=== PATIENT | female | born 1950 | race Caucasian/White ===

== ENCOUNTER 2021-11-07 15:44 | Observation (INO) | payer MEDICARE, MEDICAID, SELFPAY ==
--- NOTE | ~2021-11-07 | XR_ITS ---
EXAMINATION: XR sacrum coccyx min 2V DATE: 11/07/2021 16:39 INDICATION: Buttock hematoma and swelling with left-sided sacral pain post fall TECHNIQUE: Frontal, angled frontal and lateral views of the sacrum and coccyx were obtained. COMPARISON: None. FINDINGS: There is relatively abrupt anterior angulation of the inferior coccyx the left lobe of S4-S5. No frac ture line identified. Sacral arches appear intact. Mild bilateral sacroiliac osteoarthritis. Partiall y visualized internal fixation at the proximal left femur for an old intratrochanteric fracture with still mild distraction of a chronic nonunited lesser trochanteric fracture fragment. Severe lower lum bar facet osteoarthritis. IMPRESSION: 1. Abrupt anterior angulation at the caudal sacrum which raises some suspicion for fracture but witho ut definitive fracture line. Could consider CT for further evaluation. Reviewed, dictated and finalized at location A. TIC STRAIGHTENING ROLL OPERATOR IMPRESSION: 1. Abrupt anterior angulation at the caudal sacrum which raises some suspicion for fracture but without definitive fracture line. Could consider CT for furthe r evaluation.
--- NOTE | ~2021-11-07 | CT_ITS ---
EXAMINATION: CT pelvis w con DATE: 11/07/2021 18:01 INDICATION: Swelling, bruising and hematoma at the left buttock post fall TECHNIQUE: Computed tomography (CT) of the pelvis was performed with 100 mL Omnipaque-350 intravenous contrast. Automated exposure control and iterative reconstruction technique were employed.The dose-l ength product was 211.68 mGy-cm. COMPARISON: Radiographs dated 11/07/2021 FINDINGS: Chronic appearing L5 burst fracture with 40% central vertebral body height loss and 3 mm retropulsion . Severe lower lumbar facet osteoarthritis with fusion across the bilateral L4-L5 facet joints. Bastr op's disease with degenerative changes between the articulating cephalad and caudal surface of the lo wer lumbar spinous processes. Anterior angulation of the sacrum at the level of S5 without evident fracture which could be either d evelopmental or sequela of old trauma. Chronic intratrochanteric fracture of the proximal left femur with antegrade intramedullary theo and femoral neck dynamic compression screw fixation. Persistent sup eromedial distraction of a chronic nonunited lesser trochanteric fragment. There is moderate associat ed likely secondary atrophy of the left iliopsoas muscle. No acute fractures in the pelvis. Osteoarth ritis of the bilateral sacroiliac joints, moderate on the left and mild on the right. There is also m oderate left and mild right hip osteoarthritis. Soft tissue swelling and subcutaneous edema at the left buttock surrounding a large hematoma which me asures 10.1 x 10.1 x 4.2 cm . There are couple foci of active contrast extravasation within the hemat sandra. Bladder and visualized portions of the bowels, lower poles of the bilateral kidneys and gallblad faby fundus are normal. The uterus is not identified and has likely been surgically resected. No free fluid in the pelvis. No pathologically enlarged abdominal or pelvic lymphadenopathy. IMPRESSION: 1. Couple small foci of active transition within a 10 x 10 x 4 cm subcutaneous hematoma at the left b uttock. 2. No acute osseous abnormality. Reviewed, dictated and finalized at location A. NICAL WRITING LEAD/MGR IMPRESSION: 1. Couple small foci of active transition within a 10 x 10 x 4 cm subcutaneous hematoma at the left buttock. 2. No acute osseous abnormality.
[2021-11-07 15:48] VITALS: BP 225/129; PULSE 100; RESP 14; TEMP 36.9; O2SAT 100
--- NOTE | 2021-11-07 15:53 | ED.FALL ---
HPI - Fall General Chief Complaint: Fall Stated Complaint: Buttock Pain Time Seen by Provider: 11/07/21 15:53 Source: patient Mode of arrival: ambulatory Limitations: no limitations History of Present Illness HPI Narrative: Patient is 71-year-old female who presents the ED with complaints of a fall that occurred approximately 2 hours prior to arrival. Patient reports she was walking down her basement steps when she slipped and fell down 2 stairs, hitting her left buttocks against the edge of the stair. She denies any other injury or prodromal symptoms. No head injury or LOC. She has since developed pain and extensive swelling to her left buttocks. She describes the pain as a burning pain just underneath the surface of her skin, worse with walking and sitting. She denies any lower back pain, bowel or bladder incontinence, saddle anesthesia, weakness in her lower extremities. Patient is not on any blood thinners. No past medical history. No fever chills nausea vomiting. Related Data Allergies Allergy/AdvReac Type Severity Reaction Status Date / Time No Known Allergies Allergy Unverified 03/21/16 16:00 Review of Systems Review of Systems: CONSTITUTIONAL: Denies fever, chills, or sweats. CARDIOVASCULAR: Denies chest pain, palpitations, or edema. RESPIRATORY: Denies cough or dyspnea. GASTROINTESTINAL: Denies abdominal pain, nausea, vomiting, or diarrhea, bowel/bladder incontinence. SKIN: Reports ecchymosis to left buttock. MUSCULOSKELETAL: Reports pain and diffuse swelling to the left buttock. Denies lower back pain, joint pain, or myalgia. NEUROLOGIC: Denies headache, numbness, or weakness in BLE. All systems reviewed & are unremarkable except as noted in HPI and below [facility] Past Medical History Medical History (Updated 11/07/21 @ 20:17 by Opal Le PA-C) No pertinent past medical history Surgical History Surgical History (Updated 11/07/21 @ 19:00 by Opal Le PA-C) H/O wrist surgery History of hip surgery History of hysterectomy Family History Family History (Updated 11/07/21 @ 21:31 by Doris Hood RN) Father Chronic obstructive pulmonary disease Mother Colon cancer Diabetes mellitus Hypertension Social History Social History (Updated 11/07/21 @ 19:00 by Opal Le PA-C) Smoking status: Former smoker Alcohol intake: never Substance use: never Spiritual care concerns: No Exam Narrative: GENERAL: Well appearing, well-nourished, non-toxic, in no acute distress. HEAD: Normocephalic, atraumatic. NECK: Supple. No adenopathy, no masses. RESPIRATORY: Airway patent, respirations nonlabored. Clear to auscultation bilaterally, no rales, rhonchi, wheezing. CARDIOVASCULAR: Regular rate and rhythm without murmurs, rubs, or gallops. Peripheral pulses 2+ and equal bilaterally. ABDOMINAL: Soft, nontender, nondistended, no hepatosplenomegaly. Normoactive BS. MUSCULOSKELETAL: Moves all extremities. Strength/ROM intact. No midline lumbar spinal tenderness. Diffuse firm soft tissue swelling encompassing left buttock. Mild tenderness to palpation of left buttock. Diffuse ecchymosis forming in lower left buttock. SKIN: Warm, dry, normal color. No rashes. NEURO: A&O X3. Speech clear. Cranial nerves II-XII grossly intact. Steady gait. No ataxic movements. PSYCHIATRIC: Appropriate mood and affect. Normal interaction. Course Consultations Consultation #1: Spoke with Dr. Pardo, general surgery. Recommended admission with surgery consultation. Recommends every 6 hour H&H's. Date: 11/07/21 Consultation #2: Discussed with JOSE MIGUEL Lee patient presentation and workup. CBC pending. Advised to call her back with results. Date: 11/07/21 Time: 22:00 Consultation #3: Hospitalist service advised they would prefer to consult with surgery as primary admitting. Date: 11/07/21 Time: 20:10 Additional Consultation(s): 2009: Re-discussed case with Dr. Pardo. He will admit. Coags sent. Vital Signs
[2021-11-07 17:54] LABS: Estimated Glomerular Filt Rate > 60
[2021-11-07 17:55] LABS: Anion Gap 9 mmol/L (8-16); Blood Urea Nitrogen 21 mg/dL (7-17); Carbon Dioxide 24 mmol/L (22-30); Chloride 101 mmol/L (98-107); Estimated Glomerular Filt Rate > 60; Glucose 141 mg/dL (65-110); Potassium 3.8 mmol/L (3.4-5.0); Sodium 134 mmol/L (137-145)
[2021-11-07 19:27] LABS: Basophils Absolute Auto 0.1 K/mm3 (0.0-0.1); Basophils Percent Auto 0.4 % (0.2-1.2); Hematocrit 42.3 % (37.0-47.0); Hemoglobin 13.5 g/dL (12.0-15.0); Immature Granulocyte Absolute 0.08 K/mm3 (0.00-0.031); Immature Granulocyte Percent A 0.4 % (0-0.5); Lymphocytes Absolute Auto 0.84 K/mm3 (0.9-3.2); Lymphocytes Percent Auto 4.5 % (18.3-44.2); Mean Corpuscular HGB Conc 31.9 g/dl (32-36); Mean Corpuscular Hemoglobin 28.8 pg (26-34); Mean Corpuscular Volume 90.2 fl (80-100); Mean Platelet Volume 10.4 fl (7.4-10.4); Monocytes Absolute Auto 0.8 K/mm3 (0.1-0.6); Monocytes Percent Auto 4.2 % (2.6-8.5); Neutrophils Absolute Auto 16.8 K/mm3 (1.3-6.7); Neutrophils Percent Auto 90.5 % (45.5-73.1); Platelet Count Result 335 k/mm3 (150-375); Red Blood Count 4.69 M/mm3 (4.2-5.4); Red Cell Distribution Width 13.7 % (11.5-14.5); White Blood Count 18.6 K/mm3 (4.5-10.0)
[2021-11-07 20:09] VITALS: BP 148/102; PULSE 104; O2SAT 94
[2021-11-07 20:28] LABS: Partial Thromboplastin Time 21.6 SECONDS (22.3-36.8); Prothrombin Time 12.6 Seconds (11.1-14.7)
--- NOTE | 2021-11-07 21:01 | PC.NURSE ---
report to LUIS Watson
[2021-11-07 21:21] VITALS: BMI 24.3
[2021-11-07 21:22] VITALS: BP 164/103; PULSE 96; RESP 20; TEMP 35.8; O2SAT 99
--- NOTE | 2021-11-07 21:28 | ADMGEN ---
This patient, Farzana Kirby, was admitted to 2 Medical Room 257-01. Patient/family oriented to hospital policies and general routines including ID bracelet, bed and alarms, visiting hours, pain management, procedures, bathroom and other care routines, personal items, smoking policy, room service/diet, and visiting hours. Information on how to activate the Rapid Response Team has been discussed. Patient/Family are encouraged to report perceived risks to care and to ask questions if they do not understand what they are told or what they should do.
[2021-11-07 21:37] LABS: Hematocrit 40.7 % (37.0-47.0); Hemoglobin 13.2 g/dL (12.0-15.0)
--- NOTE | 2021-11-07 23:07 | PM.IMHP ---
H&P: HPI History of Present Illness Date/Time: 11/07/21 23:07 Chief Complaint: Fall with butt pain Narrative: 71-year-old previously healthy female who presented to the ER after at slipping on wet floor and landing on a step causing buttock pain. Review of Systems Review of Systems: 12 systems were reviewed with pertinent positives and negatives per HPI. Except as documented in the HPI, all other systems were reviewed and are negative. [facility] Past Medical History Medical History (Updated 11/07/21 @ 20:17 by Opal Le PA-C) No pertinent past medical history Surgical History Surgical History (Updated 11/07/21 @ 19:00 by Opal Le PA-C) H/O wrist surgery History of hip surgery History of hysterectomy Family History Family History (Updated 11/07/21 @ 21:31 by Doris Hood RN) Father Chronic obstructive pulmonary disease Mother Colon cancer Diabetes mellitus Hypertension Social History Social History (Updated 11/07/21 @ 19:00 by Opal Le PA-C) Smoking status: Former smoker Alcohol intake: never Substance use: never Spiritual care concerns: No Meds Home Medications and Allergies Home Medications Medication Instructions Recorded Confirmed Type No Home Medications 11/07/21 11/07/21 History Allergies Allergy/AdvReac Type Severity Reaction Status Date / Time No Known Allergies Allergy Verified 11/07/21 21:54 Vital Signs Vital Signs - 24 hr 11/07/21 15:48 11/07/21 20:09 11/07/21 21:22 Temperature 98.4 F 96.4 F L Pulse Rate 100 104 H 96 Respiratory Rate 14 20 Blood Pressure 225/129 H 148/102 H 164/103 H Pulse Oximetry 100 94 99 H&P: Results Labs Labs: Short CBC 11/07/21 11/07/21 Range/Units 19:22 21:30 WBC 18.6 H (4.5-10.0) K/mm3 Hgb 13.5 13.2 (12.0-15.0) g/dL Hct 42.3 40.7 (37.0-47.0) % Plt Count 335 (150-375) k/mm3 BMP 11/07/21 11/07/21 17:40 17:52 Sodium 134 L Potassium 3.8 Chloride 101 Carbon Dioxide 24 BUN 21 H Creatinine 0.80 0.70 Glucose 141 H Calcium 9.0
--- NOTE | 2021-11-08 00:55 | PM.IMCN ---
Assessment and Plan Assessment and plan (1) Traumatic hematoma of buttock: Qualifiers: Encounter type: initial encounter Qualified Code(s): S30.0XXA - Contusion of lower back and pelvis, initial encounter Code(s): S30.0XXA - Contusion of lower back and pelvis, initial encounter Status: Acute (2) White coat syndrome with hypertension: Code(s): I10 - Essential (primary) hypertension Status: Acute (3) Leukocytosis: Qualifiers: Leukocytosis type: unspecified Qualified Code(s): D72.829 - Elevated white blood cell count, unspecified Code(s): D72.829 - Elevated white blood cell count, unspecified Status: Acute Additional Plan Patient has large traumatic hematoma of the left buttock. General surgery to manage. His serial H&Hs have been ordered and are stable. Patient's blood pressures have improved since admission. Most likely is consistent with white coat hypertension. I have encouraged patient to purchase a home blood pressure cuff and monitor blood pressures at least on a weekly basis if she does not plan to follow-up with a primary care physician. Patient does have some leukocytosis possibly reactive in nature. No evidence of acute infection present. Repeat CBC in a.m.. Patient has been admitted as observation status. HPI Data of Consult Consult date: 11/07/21 Requesting Physician: Vickie Pardo MD Primary Care Provider: BUILDING GUARD DEPUTY SHERIFF PHYSICIAN Consult Narrative Narrative: Farzana Kirby is a 71 year old female previously healthy who presented to the ER after having slipped on water fallen landing on her left buttock. Patient came to the ER because she was having significant pain in her buttock about a hour and half after fall. On exam patient is noted to have a large hematoma of the left buttock. She reported that initially she did not have much pain after a fall. When she went to the bathroom 1-1.5 hours later she developed pain upon standing. The pain was burning in nature and he was moderate in intensity. She stated that she was able to bend over and stretch without much discomfort. She said to come to the ER to make sure that she did not have a fracture. After she had been in the ER for while and went to stand up to ambulate she noticed more significant pain in the buttock. She reported the pain was a 7/10 in intensity. She had a CT of the pelvis with contrast which demonstrated soft tissue swelling and subcutaneous edema with surrounding large hematoma measuring 10 x 10 x 4 cm with a couple of foci of active contrast extravasation within the hematoma. Patient denies being on any blood thinners. She does not even take a baby aspirin. She denies any known medical problems but has not seen a physician since 2016 when she fractured her left hip. In the ER she was noted to be markedly hypertensive but the patient reports history of white coat hypertension. Her blood pressure did improved to 148/102 prior to coming to the medical floor. The patient does not check her blood pressures at home. She is resistant to the idea of taking any prescription medications. She is agreeable to purchasing a blood pressure cuff to monitor blood pressures at home. Patient denies any dizziness, loss consciousness, hitting her head or extremity weakness. She states that she has not had any serious fall since she fractured her hip in 2016. She does report some mild superficial bruising over the last several years but her amount of bruising has not changed. She denies any hematochezia, melena, epistaxis or petechiae. Review of Systems Review of Systems: 12 systems were reviewed with pertinent positives and negatives per HPI. Except as documented in the HPI, all other systems were reviewed and are negative. [facility] Past Medical History Medical History (Updated 11/08/21 @ 01:09 by Sarah Loera DO) White coat syndrome with hypertension Surgical History Surgical History (
[2021-11-08 02:39] LABS: Hematocrit 34.4 % (37.0-47.0); Hemoglobin 11.6 g/dL (12.0-15.0); Mean Corpuscular HGB Conc 33.7 g/dl (32-36); Mean Corpuscular Hemoglobin 29.2 pg (26-34); Mean Corpuscular Volume 86.6 fl (80-100); Mean Platelet Volume 9.9 fl (7.4-10.4); Platelet Count Result 273 k/mm3 (150-375); Red Blood Count 3.97 M/mm3 (4.2-5.4); Red Cell Distribution Width 13.6 % (11.5-14.5); White Blood Count 9.2 K/mm3 (4.5-10.0)
[2021-11-08 04:20] VITALS: BP 138/87; PULSE 84; RESP 20; TEMP 35.8; O2SAT 99
[2021-11-08 08:16] LABS: Hematocrit 34.4 % (37.0-47.0); Hemoglobin 11.4 g/dL (12.0-15.0)
--- NOTE | 2021-11-08 10:34 | PM.EVENT ---
Event Note Event Note Event Note: Follow-up rounding note Patient up ambulating to restroom she is advised to use a walker since she reports her left knee is hurting her. She states that her buttocks is becoming softer in the area of the hematoma and she is feeling better overall.
--- NOTE | 2021-11-08 12:28 | PM.IMHP ---
H&P: HPI History of Present Illness Date/Time: 11/08/21 12:28 The patient is a 71-year-old female that presented to the emergency department status post fall. Patient reports she slipped while walking down to her basement and fell on the stairs hitting her left buttock/side. The patient reports she did not lose consciousness. The patient reports immediate pain in her left buttock. Over the next few hours, the patient reports significantly worsening swelling, induration in the area. Patient to the emergency department, the patient was noted to have a large left buttock hematoma. Imaging was confirmatory of diagnosis. The patient was admitted to our service for further observation. Chief Complaint: Left buttock traumatic hematoma Review of Systems Constitutional: Constitutional: Denies anorexia, Denies chills, Denies fatigue, Denies fever(s), Denies lethargy, Denies night sweats, Denies poor appetite, Denies weakness, Denies weight gain and Denies weight loss Eyes: Eyes: Denies no additional eye complaints ENT: Reports system reviewed and no additional complaints, except as documented Cardiovascular: Cardiovascular: Reports no additional cardiovascular complaints Respiratory: Respiratory: Reports no additional respiratory complaints Gastrointestinal: Gastrointestinal: Reports no additional gastrointestinal complaints Genitourinary: Genitourinary: Reports no additional female genitourinary complaints Musculoskeletal: Musculoskeletal: Reports as per HPI, Reports back pain, Reports deformity, Denies muscle cramps, Denies muscle weakness, Denies numbness, Denies stiffness and Denies tingling Integumentary/Breasts: Skin/Breast: Reports system reviewed and no additional complaints, except as docu and Reports as per HPI Neurologic: Reports system reviewed and no additional complaints, except as documented Psychiatric: Psychiatric: Reports no additional psychiatric complaints Endocrine: Endocrine: Reports no additional endocrine complaints Hematologic/Lymphatic: Hematologic/Lymphatic: Reports no additional hematologic/lymphatic complaints Allergic/Immunologic: Allergic/Immunologic: Reports no additional allergic/immunologic complaints [facility] Past Medical History Medical History White coat syndrome with hypertension Surgical History Surgical History H/O colonoscopy with polypectomy (10/2010) H/O wrist surgery (05/2005) ORIF right wrist History of total hysterectomy with bilateral salpingo-oophorectomy (BSO) Due to uterine fibroids Status post open reduction with internal fixation of fracture (02/2016) Left hip fracture Family History Family History Father , Age 84 Chronic obstructive pulmonary disease Mother , Age 80 Colon cancer Diabetes mellitus Hypertension Social History Social History Social History: The patient is and lives alone. She has 1 daughter and 2 sons. She is a retired sales representative supervisor and seamstress. She is independent in all activities of daily living. She smoked 2 packs of cigarettes per day for 50 years but quit smoking in 2015. She rarely drinks alcohol and only in small amounts. She denies any illicit substance use. Primary care physician: None Smoking packs per day: 2 Smoking cigarettes per day: 40.0 Years smoked: 50 Smoking pack-years: 100.00 Smoking status: Former smoker Alcohol intake: never Substance use: never Spiritual care concerns: No Meds Home Medications and Allergies Home Medications Medication Instructions Recorded Confirmed Type No Home Medications 11/07/21 11/07/21 History Allergies Allergy/AdvReac Type Severity Reaction Status Date / Time No Known Allergies Allergy Verified 11/07/21 21:54
--- NOTE | 2021-11-08 12:38 | PM.DS ---
DS: Admitting Diagnosis Discharge Date 11/08/21 Admitting Diagnosis left buttock traumatic hematoma status post fall DS: Discharge Diagnosis Discharge Diagnosis (1) Traumatic hematoma of buttock: Qualifiers: Encounter type: initial encounter Qualified Code(s): S30.0XXA - Contusion of lower back and pelvis, initial encounter Code(s): S30.0XXA - Contusion of lower back and pelvis, initial encounter Status: Acute Assessment and Plan: stable, continue local wound care, home with p.o. analgesia and follow-up in 2 weeks DS: Summary Hospital Course Reason for hospitalization: traumatic hematoma left buttock Hospital Course: The patient is a 71-year-old female fell down some stairs yesterday causing a left buttock hematoma. The patient presented to the emergency department and subsequent imaging was confirmatory of left buttock traumatic hematoma. There was some noted extravasation on CT and decision was made to admit patient for observation. Over the next 12 hours, the patient was stable and had no evidence of further bleeding. The patient had serial labs and clinical exams all consistent with no further bleeding. Given this, the patient will be sent with instructions for wound care and p.o. analgesia. She will follow up in 2 weeks. Status at Discharge Functional status at discharge: uses cane/walker Overall status at discharge: patient is progressing back to baseline Time Spent with Patient Time attestation: Total time spent providing and/or coordinating discharge services: Time spent: Less than 30 minutes Exam Const: General: cooperative, comfortable and no acute distress Nutritional Appearance: average body habitus Resp: Effort & Inspection: normal respiratory effort Auscultation: clear to auscultation bilaterally Cardio: Rate: regular rate Rhythm: regular rhythm GI: Inspection: normal to inspection GI Palp: No abdominal tenderness and Yes Soft to palpation Skin: Other: L buttock hematoma - indurated c overlying bruising, no active expansion, 15x12 cm Neuro: General: patient oriented x3 DS: Data Data Completed and Pending Labs on day of discharge: Labs from last 24 hours 11/08/21 11/08/21 11/08/21 08:11 08:11 02:27 WBC 9.2 RBC 3.97 L Hgb 11.4 L 11.6 L Hct 34.4 L 34.4 L MCV 86.6 MCH 29.2 MCHC 33.7 RDW 13.6 Plt Count 273 MPV 9.9 Immature Gran % (Auto) Neut % (Auto) Lymph % (Auto) [place] % (Auto) Eos % (Auto) Baso % (Auto) Lymph # (Auto) [place] # (Auto) Eos # (Auto) Baso # (Auto) Abs Immat Gran (auto) Absolute Neuts (auto) Absolute Nucleated RBC Nucleated RBC % PT INR APTT Sodium Potassium Chloride Carbon Dioxide Anion Gap BUN Creatinine Estim Creat Clear Calc Estimated GFR Glucose Hemoglobin A1c Pending Calcium 11/07/21 11/07/21 11/07/21 21:30 20:08 19:22 WBC 18.6 H RBC 4.69 Hgb 13.2 13.5 Hct 40.7 42.3 MCV 90.2 MCH 28.8 MCHC 31.9 L RDW 13.7 Plt Count 335 MPV 10.4 Immature Gran % (Auto) 0.4 Neut % (Auto) 90.5 H Lymph % (Auto) 4.5 L [place] % (Auto) 4.2 Eos % (Auto) 0.0 Baso % (Auto) 0.4 Lymph # (Auto) 0.84 L [place] # (Auto) 0.8 H Eos # (Auto) 0.0 Baso # (Auto) 0.1 Abs Immat Gran (auto) 0.08 H Absolute Neuts (auto) 16.8 H Absolute Nucleated RBC 0.0 Nucleated RBC % 0.0 PT 12.6 INR 1.0 APTT 21.6 L Sodium Potassium Chloride Carbon Dioxide Anion Gap BUN Creatinine Estim Creat Clear Calc Estimated GFR Glucose Hemoglobin A1c Calcium 11/07/21 11/07/21 17:52 17:40 WBC RBC Hgb Hct MCV MCH MCHC RDW Plt Count MPV Immature Gran % (Auto) Neut % (Auto) Lymph % (Auto) [place] % (Auto) Eos % (Auto) Baso % (Auto) Lymph # (Auto) [place] # (Auto) Eos # (Auto) Baso # (Auto)
[2021-11-08 12:57] LABS: Hemoglobin A1C 5.3 % (<5.7)
== END 2021-11-08 14:08 | disposition home or self-care (01) ==
LOC: ANHED 20:17 → ANH2MED 20:36
PROVIDERS: Hospitalist; Internal Medicine; Physician Assistant; Admitting Provider Surgery; Emergency Provider Emergency Medicine; Visit Provider Surgery
DX: S30.0XXA Contusion of lower back and pelvis, initial encounter (principal); W10.9XXA Fall (on) (from) unspecified stairs and steps, initial encounter; I10 Essential (primary) hypertension; D72.829 Elevated white blood cell count, unspecified; Z87.891 Personal history of nicotine dependence
CPT/HCPCS: 36415; 72193; 72220; 80048; 83036; 85014; 85018; 85025; 85027; 85610; 85730; 99285; G0378; Q9967